=== PATIENT | female | born 1960 | race Hispanic/Latino ===

== ENCOUNTER → 2019-06-21 | Outpatient (CLI) | payer OTHER ==
[~2019-06-21] MED LIST: MELOXICAM PO
== END | disposition home or self-care (01) ==
LOC: SHCH 13:30
PROVIDERS: ATTEND Internal Medicine Cardiovascular Disease
DX: I20.9 Angina pectoris, unspecified (principal); R06.09 Other forms of dyspnea
CPT/HCPCS: 93306

== ENCOUNTER → 2019-06-25 | Outpatient (CLI) | payer BC, OTHER ==
[~2019-06-25] VITALS: Ht 152.4 cm; Wt 105.2 kg
[~2019-06-25] MED LIST changes: +REGADENOSON 0.4 MG/5 ML PF SYG IVP SCH
== END | disposition home or self-care (01) ==
LOC: SHCH 08:20
PROVIDERS: ATTEND Internal Medicine Cardiovascular Disease
DX: I20.9 Angina pectoris, unspecified (principal); R06.09 Other forms of dyspnea
CPT/HCPCS: 78452; 93017; 96374; A9500 ×2; J2785

== ENCOUNTER 2019-09-17 06:43 | Day surgery (SDC) | payer OTHER ==
[2019-09-16 16:31] VITALS: BP 160/70
[~2019-09-17] VITALS: Ht 152.4 cm; Wt 106.8 kg
[2019-09-17] VITALS (21 sets, daily range): BP systolic 110–152; BP diastolic 52–81
[~2019-09-17 06:43] MED LIST changes: +LOSA25TA41 PO; -MELOXICAM PO; +METO25TA6 PO; -REGADENOSON 0.4 MG/5 ML PF SYG IVP SCH; +TOLT4CAP13 PO
[2019-09-17] MEDS ORDERED: CLINDAMYCIN 900 MG/D5% WATER 50 ML IV ONE (07:27)
[2019-09-17] MEDS ORDERED: SODIUM CHLORIDE 0.9% 1000ML 1,000 ML IV ONE (07:27)
--- NOTE | 2019-09-17 07:45 | NUR ---
SKIN RIGHT KNEE CLIPPED AND WIPED WITH AMITA BY LORAINE
[2019-09-17] MEDS ORDERED: CEFAZOLIN SODIUM 1 GM VIAL IVP ONE (08:00)
[2019-09-17] MEDS ORDERED: MIDAZOLAM HCL 1 MG/ML 2ML VIAL ONE (08:18)
[2019-09-17] MEDS ORDERED: ROCURONIUM 10MG/1ML SYR 10 MG/ML ML ONE (08:18)
[2019-09-17] MEDS ORDERED: PROPOFOL 10 MG/ML 20ML VIAL IV ONE ×2 (08:18→09:23)
[2019-09-17] MEDS ORDERED: SUCCINYLCHOLINE 200MG/10ML SYR ONE (08:19)
[2019-09-17] MEDS ORDERED: FENTANYL CITRATE PF 50 MCG/1 ML 5ML AMP IV ONE (08:19)
[2019-09-17] MEDS ORDERED: LIDOCAINE PF 2% 5ML ABBOJECT ONE (08:22)
[2019-09-17] MEDS ORDERED: DEXAMETHASONE SOD PHOSPHATE 10MG/ML 1ML VIAL ONE (08:45)
[2019-09-17] MEDS ORDERED: ONDANSETRON HCL 4 MG/2 ML VIAL ONE (08:45)
[2019-09-17] MEDS ORDERED: EPHEDRINE SULFATE 50 MG/ML AMPULE ONE (08:48)
[2019-09-17] MEDS ORDERED: SCOPOLAMINE HYDROBROMIDE 1 EACH ADH..PATCH TD ONE (08:49)
[2019-09-17] MEDS ORDERED: VANCOMYCIN HCL 1 GM VIAL ONE (09:04)
[2019-09-17] MEDS ORDERED: KETOROLAC TROMETHAMINE 30MG/ML ONE (09:05)
[2019-09-17] MEDS ORDERED: SULF1TAB42 PO (09:51)
[2019-09-17] MEDS ORDERED: ACET1TAB12 PO (09:51)
[2019-09-17] MEDS ORDERED: MELO-106 PO (09:51)
[2019-09-17] MEDS ORDERED: MEPERIDINE-PF 25 MG/ML SYG ONE ×2 (10:05→10:14)
--- NOTE | 2019-09-17 12:30 | NUR ---
PT DISCUSSED THAT SHE COULD NOT TAKE MELOXICAM BECAUSE IT MAKES HER FEEL ILL, I EXPLAINED TO PT THAT I NOTIFIED DOCTOR LAURA, PER DOCTOR LAURA, NO NEW ORDER, DID NOT GIVE PT RX FOR MELOXICAM .
--- NOTE | 2019-09-17 13:10 | NUR ---
discharged pt, pt with walker from home.
== END 2019-09-17 13:10 | disposition home or self-care (01) ==
LOC: DAH 06:43
PROVIDERS: ATTEND Orthopaedic Surgery
DX: M23.221 Derangement of posterior horn of medial meniscus due to old tear or injury, right knee (principal); M94.261 Chondromalacia, right knee; K21.9 Gastro-esophageal reflux disease without esophagitis; I48.3 Typical atrial flutter; E78.5 Hyperlipidemia, unspecified; E11.9 Type 2 diabetes mellitus without complications; E66.01 Morbid (severe) obesity due to excess calories; Z68.42 Body mass index [BMI] 45.0-49.9, adult; Z98.890 Other specified postprocedural states; Z79.899 Other long term (current) drug therapy; Z88.0 Allergy status to penicillin; Z88.8 Allergy status to other drugs, medicaments and biological substances; Z83.3 Family history of diabetes mellitus; Z82.49 Family history of ischemic heart disease and other diseases of the circulatory system; Z82.5 Family history of asthma and other chronic lower respiratory diseases
CPT/HCPCS: 29881; 82948 ×2; A4215; A4221; A4222; A4223; A4606; A4649; A4663; A4930; A6223; A6260; J0330; J1100; J1885; J2001; J2175 ×2; J2250; J2405; J2704 ×2; J3010; J3370; J3490 ×2; J7030

== ENCOUNTER → 2023-03-14 | Outpatient (CLI) | payer BC ==
[~2023-03-14] MED LIST changes: +ACET1TAB12 PO; +MELO-106 PO; +SULF1TAB42 PO; -TOLT4CAP13 PO; +TOLT4CAP27 PO
== END | disposition home or self-care (01) ==
LOC: SHCH 11:44
PROVIDERS: ATTEND Internal Medicine Cardiovascular Disease
DX: I77.9 Disorder of arteries and arterioles, unspecified (principal)
CPT/HCPCS: 93880

== ENCOUNTER → 2023-03-19 | Outpatient (CLI) | payer BC | END | disposition home or self-care (01) | LOC: SHCH 11:29 | PROVIDERS: ATTEND Internal Medicine Cardiovascular Disease | DX: I35.0 Nonrheumatic aortic (valve) stenosis (principal); E78.5 Hyperlipidemia, unspecified; R07.9 Chest pain, unspecified; Z28.39 Other underimmunization status | CPT/HCPCS: 93306 ==

== ENCOUNTER → 2023-03-21 | Outpatient (CLI) | payer BC ==
[~2023-03-21] MED LIST changes: +ATOR40TA69 PO; +ERGO500093 PO; +METO-408 PO; +NORE5TAB7 PO; +PANT40TA54 PO; +PROG100C11 PO; +REGADENOSON 0.4 MG/5 ML PF SYG IVP ONE; +SEMA0.258 SQ
== END | disposition home or self-care (01) ==
LOC: SHCH 08:50
PROVIDERS: ATTEND Internal Medicine Cardiovascular Disease
DX: I20.9 Angina pectoris, unspecified (principal); R94.39 Abnormal result of other cardiovascular function study; R07.9 Chest pain, unspecified; Z82.49 Family history of ischemic heart disease and other diseases of the circulatory system
CPT/HCPCS: 78452; 93017; J2785; A9500 ×2; 96374

== ENCOUNTER → 2023-04-28 | Outpatient (CLI) | payer BC ==
[~2023-04-28] MED LIST changes: -ACET1TAB12 PO; -ERGO500093 PO; -MELO-106 PO; -METO25TA6 PO; -REGADENOSON 0.4 MG/5 ML PF SYG IVP ONE; -SULF1TAB42 PO
== END | disposition home or self-care (01) ==
LOC: RAH 13:23
PROVIDERS: ATTEND Internal Medicine Cardiovascular Disease
DX: I72.9 Aneurysm of unspecified site (principal); I70.0 Atherosclerosis of aorta; M79.606 Pain in leg, unspecified
CPT/HCPCS: 76882; 93925

== ENCOUNTER 2023-05-07 07:51 | Day surgery (SDC) | payer BC ==
[2023-05-02 14:52] LABS: BASOPHILS % (AUTO) 0.7 % (0.0-5.0); EOSINOPHILS % (AUTO) 1.7 % (0.0-8.0); HEMATOCRIT 45.6 % (36-48); LYMPHOCYTES % (AUTO) 19.4 % (21.0-51.0); MEAN CORPUSCULAR HEMOGLOBIN 33.2 pg (27.0-33.0); MEAN CORPUSCULAR VOLUME 97.6 fL (79-99); MONOCYTES % (AUTO) 9.7 % (3.0-13.0); NEUTROPHILS % (AUTO) 68.2 % (40.0-77.0); PLATELET COUNT (AUTO) 315 K/uL (130-400); RED BLOOD CELL COUNT(AUTO) 4.67 MIL/uL (4.00-5.50); RED CELL DISTRIBUTION WIDTH 13.3 % (11.0-15.5); WHITE BLOOD COUNT (AUTO) 6.9 K/uL (4.8-10.8)
[2023-05-02 15:11] LABS: CREATININE 0.7 mg/dL (0.5-1.5); POTASSIUM 4.1 mmol/L (3.5-5.1)
[2023-05-02 19:31] VITALS: BP 158/73
[2023-05-07] VITALS (18 sets, daily range): BP systolic 116–162; BP diastolic 43–73
[~2023-05-07] VITALS: Ht 152.4 cm; Wt 99.4 kg
[~2023-05-07 07:51] MED LIST changes: +ERGO500093 PO; +LACTATED RINGERS 1000ML 1,000 ML IV SCH; -PROG100C11 PO
[2023-05-07] MEDS ORDERED: 0.9%NACL 1000ML 1,000 ML IV ONE (08:03)
[2023-05-07] MEDS ORDERED: SUCCINYLCHOLINE CHLORIDE 20 MG/ML 10 ML VIAL ONE (08:35)
[2023-05-07] MEDS ORDERED: LIDOCAINE PF 100MG/5ML (2%) SYRINGE 5ML ONE (08:35)
[2023-05-07] MEDS ORDERED: DEXAMETHASONE SOD PHOSPHATE 10MG/ML 1ML VIAL ONE (08:36)
[2023-05-07] MEDS ORDERED: MIDAZOLAM HCL 1 MG/ML 2ML VIAL ONE (08:36)
[2023-05-07] MEDS ORDERED: GLYCOPYRROLATE 1 MG/5 ML SYRINGE ONE (08:36)
[2023-05-07] MEDS ORDERED: ONDANSETRON 4MG INJ ONE ×2 (08:37→11:37)
[2023-05-07] MEDS ORDERED: PROPOFOL 10 MG/ML 20ML VIAL IV ONE (08:37)
[2023-05-07] MEDS ORDERED: NEOSTIGMINE 5MG/5ML SYR IV ONE (08:37)
[2023-05-07] MEDS ORDERED: ROCURONIUM 10MG/1ML SYR 10 MG/ML ML ONE (08:37)
[2023-05-07] MEDS ORDERED: FENTANYL CITRATE PF 50 MCG/1 ML 2ML VIAL ONE ×2 (08:38→10:32)
[2023-05-07] MEDS ORDERED: SILVER NITRATE APPLICATOR 1 SWAB TP SCH (11:30)
[2023-05-07] MEDS ORDERED: MEPERIDINE-PF 25 MG/ML SYG ONE (11:43)
== END 2023-05-07 13:05 | disposition home or self-care (01) ==
LOC: DAH 07:51
PROVIDERS: ATTEND Obstetrics & Gynecology
DX: N95.0 Postmenopausal bleeding (principal); Z20.822 Contact with and (suspected) exposure to COVID-19; R87.610 Atypical squamous cells of undetermined significance on cytologic smear of cervix (ASC-US); R87.810 Cervical high risk human papillomavirus (HPV) DNA test positive; N88.2 Stricture and stenosis of cervix uteri; N84.0 Polyp of corpus uteri; I10 Essential (primary) hypertension; I25.10 Atherosclerotic heart disease of native coronary artery without angina pectoris; E78.00 Pure hypercholesterolemia, unspecified; E66.9 Obesity, unspecified; E11.9 Type 2 diabetes mellitus without complications; Z88.0 Allergy status to penicillin; Z88.8 Allergy status to other drugs, medicaments and biological substances; Z82.49 Family history of ischemic heart disease and other diseases of the circulatory system; Z83.3 Family history of diabetes mellitus; Z80.3 Family history of malignant neoplasm of breast; Z98.890 Other specified postprocedural states; Z68.41 Body mass index [BMI] 40.0-44.9, adult; Z79.899 Other long term (current) drug therapy
CPT/HCPCS: 87426; 80048; 85025; 36415; 58558; 57505; 57500; 87070; 82948 ×2; A6260; A4663; A4351; A4355; J3010 ×2; J3490; J1100; J2710; J0330; J7030; J2001; J2250; J2704; J2405 ×2; J2175; A4215; A4223; A4222; A4221

== ENCOUNTER 2024-05-24 14:26 | Emergency (ER) | payer OTHER, BC ==
[~2024-05-24] VITALS: Ht 152.4 cm; Wt 99.8 kg
[~2024-05-24 14:26] MED LIST changes: -LACTATED RINGERS 1000ML 1,000 ML IV SCH
[2024-05-24] MEDS: ACETAMINOPHEN 500 MG TABLET PO ONE (14:58)
[2024-05-24 16:41] VITALS: BP 120/68; PULSE 90; RESP 20; O2SAT 98
[2024-05-24] MEDS ORDERED: IBUP-2077 PO (16:48)
[2024-05-24] MEDS ORDERED: CYCL10TA16 PO (16:48)
== END 2024-05-24 17:06 | disposition home or self-care (01) ==
LOC: EDH 14:26
DX: S20.211A Contusion of right front wall of thorax, initial encounter (principal); M25.561 Pain in right knee; E10.9 Type 1 diabetes mellitus without complications; Z79.899 Other long term (current) drug therapy; Z88.0 Allergy status to penicillin; Z88.8 Allergy status to other drugs, medicaments and biological substances; V49.88XA Car occupant (driver) (passenger) injured in other specified transport accidents, initial encounter; Y93.I9 Activity, other involving external motion; Y92.488 Other paved roadways as the place of occurrence of the external cause; Y99.8 Other external cause status
CPT/HCPCS: 71045; 82948

== ENCOUNTER → 2025-05-13 | Outpatient (CLI) | payer BC ==
[~2025-05-13] MED LIST changes: +CYCL10TA16 PO; +IBUP-2077 PO
--- NOTE | 2025-05-14 04:28 | HMCIMG ---
EXAM: CR Cervical spine, 5 views. CLINICAL HISTORY: Radiculopathy in the cervical region. COMPARISON: None provided. FINDINGS: Grade 1 degenerative retrolisthesis of C3 on C4 with mild worsening on extension and improvement on flexion. Straightening of the expected cervical lordosis reflects paraspinal muscle spasm. Mild osteopenia. Mild to moderate spondylosis. Moderate to severe degenerative disc space narrowing at C5-C6. Mild degenerative disc space narrowing at C3-C4. The remaining disc spaces are maintained. Normal vertebral body heights. No acute fracture. The prevertebral soft tissues are within normal limits. The included lungs are clear. IMPRESSION: Grade 1 degenerative retrolisthesis of C3 on C4 with mild worsening on extension and improvement on flexion. Straightening of the expected cervical lordosis reflects paraspinal muscle spasm. Mild osteopenia. Mild to moderate spondylosis. Moderate to severe degenerative disc space narrowing at C5-C6. Mild degenerative disc space narrowing at C3-C4. /[place]
--- NOTE | 2025-05-14 04:37 | HMCIMG ---
EXAM: CR Lumbar Spine, 4 views. CLINICAL HISTORY: Pain. COMPARISON: None. FINDINGS: Lumbar alignment is within normal limits. No spondylolisthesis in flexion or extension. Mild osteopenia. Mild spondylosis. Mild disc space narrowing at L5-S1. The remaining disc spaces are maintained. Normal vertebral body heights. No acute fracture. Atherosclerotic vascular calcifications. IMPRESSION: No acute bony abnormality is evident. No spondylolisthesis in flexion or extension. Mild osteopenia. Mild spondylosis. Mild disc space narrowing at L5-S1 could be secondary to hypoplastic disc or disc degeneration. /[place]
--- NOTE | 2025-05-14 04:44 | HMCIMG ---
EXAM: CR Pelvis and Bilateral Hips, 5 views. CLINICAL HISTORY: Right hip pain. Unequal limb length. COMPARISON: None provided. FINDINGS: No acute fracture or aggressive appearing osseous lesion. 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 Atherosclerotic vascular calcifications. IMPRESSION: No acute bony abnormality is evident. 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 /[place]
--- NOTE | 2025-05-14 04:48 | HMCIMG ---
EXAM: CR Entire Spine, 3 views. CLINICAL HISTORY: Unequal limb length. COMPARISON: None provided. FINDINGS: No significant scoliosis is evident. Normal vertebral body heights. No acute fracture. The soft tissues are within normal limits. The included lungs are clear. IMPRESSION: No scoliosis or acute bony abnormality. /[place]
== END | disposition home or self-care (01) ==
LOC: RAH 14:28
PROVIDERS: ATTEND Physical Medicine & Rehabilitation
DX: M16.0 Bilateral primary osteoarthritis of hip (principal); M47.816 Spondylosis without myelopathy or radiculopathy, lumbar region; M47.22 Other spondylosis with radiculopathy, cervical region; M99.05 Segmental and somatic dysfunction of pelvic region; M43.12 Spondylolisthesis, cervical region; M85.88 Other specified disorders of bone density and structure, other site; M48.07 Spinal stenosis, lumbosacral region; M40.50 Lordosis, unspecified, site unspecified; M48.02 Spinal stenosis, cervical region; M62.830 Muscle spasm of back; M21.70 Unequal limb length (acquired), unspecified site; M54.2 Cervicalgia; M54.51 Vertebrogenic low back pain
CPT/HCPCS: 72050; 72081; 72114; 73521